=== PATIENT | female | born 1970 | race Caucasian/White ===

== ENCOUNTER 2019-01-11 13:06 | Emergency (ER) | payer SELFPAY ==
[2019-01-11] MEDS ORDERED: DIPH/PERTUSS(ACELL)/TETANUS VAC/PF 0.5 ML SYR (>=10YO) IM ONE (13:26)
[2019-01-11] MEDS ORDERED: NORMAL SALINE 1000 ML 1,000 ML IV ONE (13:26)
[2019-01-11 13:45] LABS: ABSOLUTE LYMPHOCYTES (AUTO) 2.7 10^3/uL (0.5-4.7); ABSOLUTE MONOCYTES (AUTO) 0.6 10^3/uL (0.1-1.4); ABSOLUTE NEUT (AUTO) 3.9 10^3/uL (1.7-8.2); BASOPHILS % (AUTO) 0.3 % (0-2); EOSINOPHILS % (AUTO) 0.3 % (0-6); HEMATOCRIT 39.7 % (36.0-47.0); HEMOGLOBIN 13.7 g/dL (12.0-15.5); LYMPHOCYTES % (AUTO) 37.3 % (13-45); MEAN CORPUSCULAR HGB CONC 34.4 g/dL (32.0-36.0); MEAN CORPUSCULAR VOLUME 99 fl (80-97); MONOCYTES % (AUTO) 7.9 % (3-13); PLATELET COUNT 234 10^3/uL (150-450); RED BLOOD COUNT 4.02 10^6/uL (3.72-5.28); RED CELL DISTRIBUTION WIDTH 12.6 % (11.5-14.0); SEGMENTED NEUTROPHILS % (AUTO) 54.2 % (42-78); TOTAL CELLS COUNTED % (AUTO) 100 %; WHITE BLOOD COUNT 7.2 10^3/uL (4.0-10.5)
[2019-01-11 13:57] LABS: ALANINE AMINOTRANSFERASE 23 U/L (9-52); ALBUMIN 5.2 g/dL (3.5-5.0); ALKALINE PHOSPHATASE 76 U/L (38-126); ANION GAP 19 (5-19); ASPARTATE AMINO TRANSFERASE 35 U/L (14-36); BILIRUBIN,DIRECT 0.3 mg/dL (0.0-0.4); BILIRUBIN,TOTAL 1.1 mg/dL (0.2-1.3); BLOOD UREA NITROGEN 11 mg/dL (7-20); CALCIUM 9.8 mg/dL (8.4-10.2); CARBON DIOXIDE 19 mmol/L (22-30); CHLORIDE 103 mmol/L (98-107); CREATINE KINASE 72 U/L (30-135); GLUCOSE 86 mg/dL (75-110); POTASSIUM 3.6 mmol/L (3.6-5.0); SODIUM 140.9 mmol/L (137-145); TOTAL PROTEIN 7.9 g/dL (6.3-8.2)
[2019-01-11 13:58] LABS: ALCOHOL < 10 mg/dL (NONE DETECTED)
[2019-01-11 14:07] LABS: CREATINE KINASE MB 0.43 ng/mL (<4.55)
[2019-01-11 14:09] LABS: TROPONIN I < 0.012 ng/mL
[2019-01-11 14:55] LABS: APPEARANCE,URINE CLEAR; BILIRUBIN,URINE NEGATIVE (NEGATIVE); COLOR,URINE YELLOW; GLUCOSE, URINE NEGATIVE (NEGATIVE); KETONES,URINE NEGATIVE (NEGATIVE); LEUKOCYTE ESTERASE,URINE NEGATIVE (NEGATIVE); NITRITE,URINE NEGATIVE (NEGATIVE); PROTEIN,URINE NEGATIVE (NEGATIVE); URINE SPECIFIC GRAVITY 1.011; UROBILINOGEN,URINE NEGATIVE mg/dL (<2.0)
--- NOTE | 2019-01-11 16:16 | RADIOLOGY REPORT (SQ) ---
EXAM DESCRIPTION: CT HEAD WITHOUT COMPLETED DATE/TIME: 01/11/2019 3:59 pm REASON FOR STUDY: Syncope, head injury COMPARISON: None. TECHNIQUE: Axial images acquired through the brain without intravenous contrast. Images reviewed wi th bone, brain and subdural windows. Additional sagittal and coronal reconstructions were generated. Images stored on PACS. All CT scanners at this facility use dose modulation, iterative reconstruction, and/or weight based d osing when appropriate to reduce radiation dose to as low as reasonably achievable (ALARA). [facility]: Dose Right [facility]: CareDose [facility]: Dose Right [facility]: Teradose 4D [facility]: Smart TRUECar RADIATION DOSE: CT Rad equipment meets quality standard of care and radiation dose reduction techniq ues were employed. CTDIvol: 48.6 mGy. DLP: 855 mGy-cm. mGy. LIMITATIONS: None. FINDINGS: VENTRICLES: Normal size and contour. CEREBRUM: No masses. No hemorrhage. No midline shift. No evidence for acute infarction. Normal gra y/white matter differentiation. No areas of low density in the white matter. CEREBELLUM: No masses. No hemorrhage. No alteration of density. No evidence for acute infarction. EXTRAAXIAL SPACES: No fluid collections. No masses. ORBITS AND GLOBE: No intra- or extraconal masses. Normal contour of globe without masses. CALVARIUM: No fracture. PARANASAL SINUSES: No fluid or mucosal thickening. SOFT TISSUES: No mass or hematoma. OTHER: No other significant finding. IMPRESSION: NORMAL BRAIN CT WITHOUT CONTRAST. EVIDENCE OF ACUTE STROKE: NO. COMMENT: Quality ID # [id number]: Final reports with documentation of one or more dose reduction techniques (e.g., Automated exposure control, adjustment of the mA and/or kV according to patient size, use of iterative reconstruction technique) TECHNICAL DOCUMENTATION: JOB ID: [id number] [employer]- All Rights Reserved Reading location - IP/workstation name: [email or web address]
[2019-01-11] MEDS ORDERED: ONDANSETRON HCL INJ/PF 4 MG/2 ML SDV IV ONE (16:17)
[2019-01-11] MEDS ORDERED: LIDOCAINE 1%/EPINEPHRINE INJ 20 ML VIAL INJ ONE (16:17)
[2019-01-11] MEDS ORDERED: MORPHINE SULFATE 10 MG/ML INJ IV ONE (16:17)
--- NOTE | 2019-01-11 16:21 | RADIOLOGY REPORT (SQ) ---
EXAM DESCRIPTION: CT CERVICAL SPINE WITHOUT COMPLETED DATE/TIME: 01/11/2019 3:59 pm REASON FOR STUDY: Syncope, head injury COMPARISON: None. TECHNIQUE: Axial images acquired through the cervical spine without intravenous contrast. Images re viewed with lung, soft tissue and bone windows. Reconstructed coronal and sagittal MPR images review ed. Images stored on PACS. All CT scanners at this facility use dose modulation, iterative reconstruction, and/or weight based d osing when appropriate to reduce radiation dose to as low as reasonably achievable (ALARA). [facility]: Dose Right [facility]: CareDose [facility]: Dose Right [facility]: Teradose 4D [facility]: Smart [employer] RADIATION DOSE: CT Rad equipment meets quality standard of care and radiation dose reduction techniq ues were employed. CTDIvol: 12.8 mGy. DLP: 266 mGy-cm. mGy. LIMITATIONS: None. FINDINGS: ALIGNMENT: Straightening of the lordotic curve. MINERALIZATION: Normal. VERTEBRAL BODIES: No fractures or dislocation. DISCS: Multilevel disc space narrowing with osteophytes. FACETS, LATERAL MASSES, POSTERIOR ELEMENTS: Facet arthropathy. No fractures. No dislocation. No ac port gamble findings. HARDWARE: None in the spine. VISUALIZED RIBS: No fractures. LUNG APICES AND SOFT TISSUES: No significant or acute findings. OTHER: No other significant finding. IMPRESSION: CHRONIC DEGENERATIVE CHANGES. NO ACUTE FINDINGS. TECHNICAL DOCUMENTATION: JOB ID: [id number] Quality ID # [id number]: Final reports with documentation of one or more dose reduction techniques (e.g., Au tomated exposure control, adjustment of the mA and/or kV according to patient size, use of iterative reconstruction technique) 2010 [employer]- All Rights Reserved Reading location - IP/workstation name: [email or web address]
[2019-01-11] MEDS ORDERED: HYDROCODONE/ACETAMINOPHEN 5-325 MG (6 TAB/ER DISP) PO PRN (17:01)
--- NOTE | 2019-01-11 17:07 | ER Document Report ---
Entered by MICKIE FAM SCRIBE 01/11/19 0274 Acting as scribe for:JORDYN DUVAL MD ED General - General Stated Complaint: POSSIBLE SYNCOPE Time Seen by Provider: 01/11/19 13:15 Mode of Arrival: Medic Information source: Patient Notes: Patient is a 48 year old female presenting to the emergency department via EMS complaining of headache secondary and syncopal episode. Patient states she was in her yard using a weed eater for approximately 20 minutes when she proceeded to pass out. She states the next thing she remembered was waking up on the ground with multiple people surrounding her. She reports having similar symptoms a year ago. She states at that time, she kneeled over at a yard sale and proceeded to fall over. She states she was told she had a "small grand mal seizure". She denies any neck pain. EMS reports a laceration on the patient's head. 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 She states she consumed approximately 6-7 beers last night. - Related Data Allergies/Adverse Reactions: No Known Allergies Allergy (Verified 01/11/19 16:25) Past Medical History - General Information source: Patient - Social History Smoking Status: Current Every Day Smoker Cigarette use (# per day): Yes - 1/2 PPD Smoking Education Provided: No Frequency of alcohol use: Heavy Family History: Reviewed & Not Pertinent Review of Systems - Review of Systems Constitutional: No symptoms reported EENT: No symptoms reported Cardiovascular: See HPI, Syncope Respiratory: No symptoms reported Gastrointestinal: No symptoms reported Genitourinary: No symptoms reported Female Genitourinary: No symptoms reported Musculoskeletal: No symptoms reported Skin: No symptoms reported Hematologic/Lymphatic: No symptoms reported Neurological/Psychological: See HPI, Headaches -: Yes All other systems reviewed and negative Physical Exam - Notes Notes: GENERAL: Alert, interacts well. No acute distress. HEAD: Head is initially wrapped in bandages done by EMS. EYES: Pupils equal, round, and reactive to light. Extraocular movements intact. ENT: Oral mucosa moist, tongue midline. NECK: Initially placed in a C-collar. LUNGS: Clear to auscultation bilaterally, no wheezes, rales, or rhonchi. No respiratory distress. HEART: Regular rate and rhythm. No murmurs, gallops, or rubs. ABDOMEN: Soft, non-tender. Non-distended. Bowel sounds present in all 4 quadrants. No guarding, rigidity, or rebound. EXTREMITIES: Moves all 4 extremities spontaneously. NEUROLOGICAL: Alert and oriented x3. Normal speech. PSYCH: Normal affect, normal mood. SKIN: Warm, dry, normal turgor. No rashes or lesions noted. Course - Re-evaluation Re-evalutation: 01/11/19 16:54 Patient has been on a monitor showing a normal sinus rhythm the entire time she is here. Her only complaint has been the headache to the top of the head where the injury is and a throbbing sensation in her temporal regions. She denies neck pain, she denies chest pain, she denies shortness of breath, she denies thoracic, back, or abdominal injury. - Laboratory Result Diagrams: 01/11/19 13:00 01/11/19 13:00 Laboratory results interpreted by me: 01/11/19 01/11/19 13:00 13:00 MCV 99 H [facility] 34.0 H Carbon Dioxide 19 L Albumin 5.2 H - Diagnostic Test Radiology reviewed: Image reviewed, Reports reviewed - CT scan of cervical spine shows chronic degenerative changes without acute injury. CT scan of the head shows no intracranial abnormalities. Procedures - Laceration/Wound Repair Upper Head Time completed: 16:50 Wound length (cm): 6 Wound's Depth, Shape: Linear, Contused tissue Laceration pre-procedure: Sterile drapes applied, Shur-Clens applied Anesthetic type: 1% Lidocaine w/epi Volume Anesthetic (mLs): 12 Wound explored: Clean, No foreign body removed Wound Debrided: Minimal Wound Repaired With: Adalberto - 7 adalberto Discharge - Discharge Clinical Impression: Episode of syncope Qualifiers: Syncope type: unspecified Qualified Code(s): R55 - Syncope and collapse Scalp laceration Qualifiers: Encounter type: initial encounter Qualified Code(s): S01.01XA - Laceration wit hout foreign body of scalp, initial encounter Condition: Stable Disposition: HOME, SELF-CARE Additional Instructions: Scalp Laceration: A scalp laceration requires little care. Dressings are applied only if severe bleeding or a large flap are present. Usually, once the cut is stapled, you can ignore it. Simply comb the hair over top of it to hide the adalberto and go about your usual routine. You can shampoo your hair as needed starting tomorrow. If you need to wear a special hat or protective helmet for work, be careful that it doesn't press on the area. If crusting is bothersome, you can soften the crusts with Polysporin ointment, then shampoo. Infection in a scalp laceration is rare. If any signs of infection occur (swelling, redness, increasing tenderness, red streaks, tender lumps in the neck on the side of the laceration, or fever), see the doctor immediately. Syncopal Episode: Syncope (fainting or near-fainting) can occur from many different health problems. Or it can be a simple fainting spell requiring no treatment. It is safe for you to go home, but further evaluation will likely be necessary. Your work-up may include tests for internal bleeding, heart disease, medication problems, or near-strokes. Tests are not always required, however, depending on the nature of your problem. The warning signs of an impending faint include: dizziness, lightheadednes s, nausea, hot flashes, tingling, and weakness. If this happens, lay down and put your feet up, then wait until all of these symptoms have passed before standing up again. If these episodes become recurrent, or if you develop chest pain, heart palpitations, mental confusion, blurred vision, or headache, then you should call the physician, or go to the emergency room. Use ice packs to the injured area of your scalp to reduce swelling and to help with pain control. Rest in a seated position, sleeping in an easy chair tonight would be a good idea to keep your head elevated above your heart. Take the [place] that is dispensed for headache--1 tablet every 4-6 hours as needed. Return in 7-10 days to have the adalberto removed. Return sooner if any signs of infection or any other problems. RETURN TO THE EMERGENCY ROOM IF ANY NEW OR WORSENING SYMPTOMS. I personally performed the services described in the documentation, reviewed and edited the documentation which was dictated to the scribe in my presence, and it accurately records my words and actions.
[2019-01-11 17:38] VITALS: BP 151/100
== END 2019-01-11 17:51 | disposition home or self-care (01) ==
LOC: ER 13:06
DX: S01.01XA Laceration without foreign body of scalp, initial encounter (principal); R55 Syncope and collapse; F17.210 Nicotine dependence, cigarettes, uncomplicated; W18.39XA Other fall on same level, initial encounter; Y93.H2 Activity, gardening and landscaping; Y92.007 Garden or yard of unspecified non-institutional (private) residence as the place of occurrence of the external cause; Z23 Encounter for immunization
CPT/HCPCS: 99284; 96361; 90471; 96374; 96375; 36415; 82553; 80307; 82550; 85025; 80053; 81001; 84484; 70450; 72125; 90715; 12002; J3490; J2270; J2405; J7030

== ENCOUNTER 2019-01-23 10:34 | Emergency (ER) | payer SELFPAY ==
[2019-01-23 10:43] VITALS: BP 147/98
--- NOTE | 2019-01-23 10:48 | ER Document Report ---
HPI - HPI Time Seen by Provider: 01/23/19 10:47 Pain Level: 4 Notes: 48 yr old female presents for 7 adalberto to be removed after sustaining a head trauma s/p syncopal events on 01/11/19. Denies any fevers chills, denies any headaches, blurred vision double vision loss of vision. States wound has been healing well. No new complaints. Denies any chest pain shortness of breath. - REPRODUCTIVE Reproductive: DENIES: : Past Medical History - General Information source: Patient - Social History Smoking Status: Unknown if Ever Smoked Family History: Reviewed & Not Pertinent Renal/ Medical History: Denies: Hx Peritoneal Dialysis Vertical Provider Document - CONSTITUTIONAL Agree With Documented VS: Yes Notes: PHYSICAL EXAMINATION: GENERAL: Well-appearing, well-nourished and in no acute distress. HEAD: Atraumatic, normocephalic. 7 adalberto in head EYES: Pupils equal round and reactive to light, extraocular movements intact, conjunctiva are normal. ENT: Nares patent, oropharynx clear without exudates. Moist mucous membranes. NECK: Normal range of motion, supple without lymphadenopathy LUNGS: Breath sounds clear to auscultation bilaterally and equal. No wheezes rales or rhonchi. HEART: Regular rate and rhythm without murmurs Female : deferred Musculoskeletal: Normal range of motion, no pitting or edema. No cyanosis. NEUROLOGICAL: Cranial nerves grossly intact. Normal speech, normal gait. Normal sensory, motor exams PSYCH: Normal mood, normal affect. SKIN: Warm, Dry, normal turgor, no rashes or lesions noted. 22-like and then on the other half of a flight - INFECTION CONTROL TRAVEL OUTSIDE OF THE [place] IN LAST 30 DAYS: No Course - Re-evaluation Re-evalutation: 01/23/19 10:52 Afebrile, vitals stable and in no distress . verbal consent given to to remove adalberto. 7 adalberto removed without incident with staple remover. pt tolerated procedure without distress. You needed to be ableI have reevaluated this patient multiple times and no significant life threatening changes, no signs of toxicity, sepsis or peritonitis are noted. The patient and I have discussed the diagnosis and risks, and we agree with discharging home and close follow-up. We also discussed returning to the Emergency Department immediately if new or worsening symptoms occur with the understanding that symptoms and presentations can change. At this time will discharge with return precautions and follow-up recommendations. Verbal discharge instructions given a the bedside and opportunity for questions given. We have discussed the symptoms which are most concerning (e.g., headache , fevers, Good capillary that necessitate immediate return. Medication warnings reviewed. All questions and concerns answered by this provider. Patient is in agreement with this plan and has verbalized understanding of return precautions and the need for primary care follow-up in the next 24-72 hours. Patient verbalized understanding of plan of care and agree with plan of care. - Vital Signs Vital signs: Temp Pulse Resp BP Pulse Ox 97.5 F 72 16 147/98 H 99 01/23/19 10:41 01/23/19 10:41 01/23/19 10:41 01/23/19 10:41 01/23/19 10:41 Discharge - Discharge Clinical Impression: Removal of staple Condition: Stable Disposition: HOME, SELF-CARE Instructions: Staple Removal ([facility]) Additional Instructions: Which is probably monitor site, apply [id number] triple antibiotic ointment as needed to area twice a day. If any redness, swelling, drainage occur, return to ER. follow up with pcp as needed Drain until Return immediately for any new or worsening symptoms. Follow up with primary care provider, call tomorrow to make followup appointment. Forms: Return to Work Referrals: BHAVYA HOOPER MD [ACTIVE STAFF] - Follow up as needed
== END 2019-01-23 11:01 | disposition home or self-care (01) ==
LOC: ER 10:34
DX: S09.90XD Unspecified injury of head, subsequent encounter (principal); X58.XXXD Exposure to other specified factors, subsequent encounter

== ENCOUNTER 2019-11-08 08:28 | Emergency (ER) | payer OTHER ==
[2019-11-08] MEDS ORDERED: IBUPROFEN 800 MG TABLET PO ONE (10:10)
--- NOTE | 2019-11-08 10:12 | ER Document Report ---
HPI - HPI Patient complains to provider of: right foot pain Time Seen by Provider: 11/08/19 10:08 Onset: Other Onset/Duration: Persistent Quality of pain: Achy Severity: Moderate Pain Level: 3 Context: This 48-year-old female presents emergency department with complaints of right foot pain. Reports she fell down some steps couple days ago and reports pain since that time. 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 Associated Symptoms: None Exacerbated by: Walking Relieved by: Denies Similar symptoms previously: No Recently seen / treated by doctor: No - REPRODUCTIVE LMP: Depo Shot Reproductive: DENIES: : Past Medical History - General Information source: Patient - Social History Smoking Status: Never Smoker Chew tobacco use (# tins/day): No Frequency of alcohol use: Occasional Drug Abuse: Marijuana Occupation: [employer] Family History: Reviewed & Not Pertinent Patient has suicidal ideation: No Patient has homicidal ideation: No - Medical History Medical History: Negative Renal/ Medical History: Denies: Hx Peritoneal Dialysis Past Surgical History: Reports: Hx Gynecologic Surgery Vertical Provider Document - CONSTITUTIONAL Agree With Documented VS: Yes Exam Limitations: No Limitations General Appearance: WD/WN, No Apparent Distress - INFECTION CONTROL TRAVEL OUTSIDE OF THE [place] IN LAST 30 DAYS: No - HEENT HEENT: Atraumatic, Normocephalic - NECK Neck: Normal Inspection, Supple - RESPIRATORY Respiratory: Breath Sounds Normal, No Respiratory Distress - CARDIOVASCULAR Cardiovascular: Regular Rate, Regular Rhythm - MUSCULOSKELETAL/EXTREMETIES Musculoskeletal/Extremeties: MAEW, FROM, Tender - right 4 &5 toe ttp, no obvious deformity cap refill less than 2 seconds good pedal pulse - NEURO Level of Consciousness: Awake, Alert, Appropriate Motor/Sensory: No Motor Deficit - DERM Integumentary: Warm, Dry Course - Re-evaluation Re-evalutation: 11/08/19 10:59 Foot X-Ray 11/08/19 10:10 IMPRESSION: Osteopenia. Nondisplaced transverse fracture of the base of the right 5th proximal phalanx. Fracture noted to the base of the proximal phalanx. Postop shoe ordered patient instructed on importance of follow-up with orthopedics rest ice Motrin for the pain. - Vital Signs Vital signs: Temp Pulse Resp BP Pulse Ox 97.8 F 85 18 141/97 H 97 11/08/19 08:57 11/08/19 08:57 12/26/19 08:57 11/08/19 08:57 11/08/19 08:57 - Diagnostic Test Radiology reviewed: Image reviewed, Reports reviewed Procedures - Immobilization Right Foot Immobilizer type: Post-op shoe Performed by: PCT Post-Proc Neuro Vasc Exam: Unchanged from pre-exam Discharge - Discharge Clinical Impression: Right foot pain Fracture of fifth toe, right, closed Qualifiers: Encounter type: initial encounter Qualified Code(s): S92.501A - Displaced unspecified fracture of right lesser toe(s), initial encounter for closed fracture Condition: Stable Disposition: HOME, SELF-CARE Instructions: Fracture ([facility]), Ibuprofen (General) ([facility]), Ice & Elevation ([facility]), Post-Op Shoe ([facility]), Fractured Toe ([facility]) Additional Instructions: *You have been evaluated for fractured base of 5th toe *Maintain the post op shoe *Rest/Ice/Elevate *Follow up with orthopedics within one week *Take medication as prescribed *Return to ED for worsening condition, changes, needs Monitor your blood pressure. Your blood pressure was elevated today. This may be because you were anxious, in pain or because you need medication. It is important to follow up with your primary care provider for full evaluation. Prescriptions: Ibuprofen [Motrin 800 mg Tablet] 800 mg PO TID #15 tablet Forms: Elevated Blood Pressure, Return to Work
--- NOTE | 2019-11-08 10:56 | RADIOLOGY REPORT (SQ) ---
EXAM DESCRIPTION: FOOT RIGHT COMPLETE COMPLETED DATE/TIME: 11/08/2019 10:40 am REASON FOR STUDY: fell pain COMPARISON: None. NUMBER OF VIEWS: Three views. TECHNIQUE: AP, lateral and oblique radiographic images acquired of the right foot. LIMITATIONS: None. FINDINGS: MINERALIZATION: Osteopenia. BONES: Nondisplaced transverse fracture of the base of the right 5th proximal phalanx. JOINTS: No effusions. SOFT TISSUES: No soft tissue swelling. No foreign body. OTHER: No other significant finding. IMPRESSION: Osteopenia. Nondisplaced transverse fracture of the base of the right 5th proximal phala nx. TECHNICAL DOCUMENTATION: JOB ID: [id number] [employer]- All Rights Reserved Reading location - IP/workstation name: [email or web address]
[2019-11-08 11:18] VITALS: BP 154/95
== END 2019-11-08 11:17 | disposition home or self-care (01) ==
LOC: ER 08:28
DX: S92.501A Displaced unspecified fracture of right lesser toe(s), initial encounter for closed fracture (principal); M79.671 Pain in right foot; W10.9XXA Fall (on) (from) unspecified stairs and steps, initial encounter
CPT/HCPCS: 99283

== ENCOUNTER 2020-08-30 10:30 | Emergency (ER) | payer OTHER ==
--- NOTE | 2020-08-30 11:04 | ER Document Report ---
ED Medical Screen (RME) - General Chief Complaint: Arm Pain Stated Complaint: LEFT ELBOW PAIN Time Seen by Provider: 08/30/20 10:56 Mode of Arrival: Ambulatory Information source: Patient Notes: 49-year-old female presented to ED for a knot to her left elbow for about the last 4 days. She states she has not injured it she does not want know what it is from. She states it started out red and painful then became yellow and painful now it is just painful. She states it started on Tuesday. She states she does smoke half pack a day drinks about 18 pack or more a day and does use some marijuana. Has medical history of seizures. States she did have a finger injury that did not heal properly so they had to do surgery and she also had a ovary removed. Patient is alert and oriented at this time. I have greeted and performed a rapid initial assessment of this patient. A comprehensive ED assessment and evaluation of the patient, analysis of test results and completion of medical decision making process will be conducted by an additional ED providers. TRAVEL OUTSIDE OF THE [place] IN LAST 30 DAYS: No - Related Data Allergies/Adverse Reactions: No Known Allergies Allergy (Verified 11/08/19 10:02) Past Medical History Renal/ Medical History: Denies: Hx Peritoneal Dialysis Past Surgical History: Reports: Hx Gynecologic Surgery Physical Exam - Vital signs Vitals: Temp Pulse Resp BP Pulse Ox 98.1 F 79 18 156/90 H 100 08/30/20 10:40 08/30/20 10:40 08/30/20 10:40 08/30/20 10:40 08/30/20 10:40 Course - Vital Signs Vital signs: Temp Pulse Resp BP Pulse Ox 98.1 F 79 18 156/90 H 100 08/30/20 10:40 08/30/20 10:40 08/30/20 10:40 08/30/20 10:40 08/30/20 10:40
[2020-08-30 11:31] LABS: ABSOLUTE MONOCYTES (AUTO) 0.4 10^3/uL (0.1-1.4); EOSINOPHILS % (AUTO) 0.3 % (0-6); TOTAL CELLS COUNTED % (AUTO) 100 %
[2020-08-30 11:38] LABS: ABSOLUTE LYMPHOCYTES (AUTO) 1.3 10^3/uL (0.5-4.7); ABSOLUTE NEUT (AUTO) 2.6 10^3/uL (1.7-8.2); BASOPHILS % (AUTO) 0.4 % (0-2); HEMATOCRIT 37.5 % (36.0-47.0); MEAN CORPUSCULAR HGB CONC 34.7 g/dL (32.0-36.0); MEAN CORPUSCULAR VOLUME 104 fl (80-97); MONOCYTES % (AUTO) 9.8 % (3-13); PLATELET COUNT 191 10^3/uL (150-450); RED BLOOD COUNT 3.62 10^6/uL (3.72-5.28); RED CELL DISTRIBUTION WIDTH 12.3 % (11.5-14.0); SEGMENTED NEUTROPHILS % (AUTO) 60.5 % (42-78); WHITE BLOOD COUNT 4.3 10^3/uL (4.0-10.5)
[2020-08-30] MEDS ORDERED: DEXAMETHASONE SOD PHOS INJ 10 MG/1 ML VIAL IV ONE (11:38)
[2020-08-30] MEDS ORDERED: KETOROLAC TROMETHAMINE INJ/PF 30 MG/1 ML SDV IV ONE (11:38)
--- NOTE | 2020-08-30 11:41 | ER Document Report ---
ED Extremity Problem, Upper - General Chief Complaint: Elbow pain Stated Complaint: LEFT ELBOW PAIN Time Seen by Provider: 08/30/20 10:56 Mode of Arrival: Ambulatory Notes: This 49-year-old woman presents to the emergency department with a 4-day history of left elbow pain. 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 States that she awoke 4 days ago with swelling and tenderness in the medial aspect of the left arm. She denies a known injury, however was doing some heavy lifting the day prior to the onset. She denies a history of similar episodes in the past. She is a heavy drinker and smoker. She also describes sweaty episodes and hot flashes which she relates to having 1 ovary and now age 49. She had been taking a Depo Provera shot prior to the pandemic, however, she has not been going back to the health department for treatment. TRAVEL OUTSIDE OF THE [place] IN LAST 30 DAYS: No - Related Data Allergies/Adverse Reactions: No Known Allergies Allergy (Verified 11/08/19 10:02) Past Medical History - General Information source: Patient - Social History Smoking Status: Current Every Day Smoker Chew tobacco use (# tins/day): No Frequency of alcohol use: 18 pack a day Drug Abuse: Marijuana Family History: Reviewed & Not Pertinent Renal/ Medical History: Denies: Hx Peritoneal Dialysis Past Surgical History: Reports: Hx Gynecologic Surgery Review of Systems - Review of Systems Notes: Constitutional: Negative for fever. HENT: Negative for sore throat. Eyes: Negative for visual changes. Cardiovascular: Negative for chest pain. Respiratory: Negative for shortness of breath. Gastrointestinal: Negative for abdominal pain, vomiting or diarrhea. Genitourinary: Negative for dysuria. Musculoskeletal: + Left elbow tenderness Skin: Negative for rash. Neurological: Negative for headaches, weakness or numbness. 10 point ROS negative except as marked above and in HPI. Physical Exam - Vital signs Vitals: Temp Pulse Resp BP Pulse Ox 98.1 F 79 18 156/90 H 100 08/30/20 10:40 08/30/20 10:40 08/30/20 10:40 08/30/20 10:40 08/30/20 10:40 - Notes Notes: PHYSICAL EXAMINATION: Physical Exam: General: Well-nourished well-developed in no acute distress HEENT: NC/AT, pupils equal round and reactive to light, MM moist,nares clear, oropharynx clear, airway patent Neck: supple, no adenopathy, no masses. Good range of motion Lungs: clear, no wheezing, no rales no rhonchi CVS: Regular rate and rhythm no murmur gallop or rub Abdomen: Soft, active, nontender, no masses, no hepatosplenomegaly Ext: + Tenderness in the medial aspect of the left elbow, decreased extension left arm neurovascular intact Neuro: Alert and responsive, moving all 4 extremities on command, cranial nerves intact, no focal findings Skin: Intact no open lesions, no rash PSYCH: Normal mood, normal affect. Course - Re-evaluation Re-evalutation: 08/30/20 13:01 X-ray was noted to be negative and patient was given Decadron and Toradol IV with some improvement of pain and improve range of motion. I have explained to the patient that there is no bony injury and that this is likely a secondary inflammation in the elbow secondary to tendon related injury. She is placed in a sling and given prescription for Naprosyn and prednisone. Of asked the patient to follow-up with her primary care doctor as needed. She states that she does not have a primary care doctor and will need a referral. During her ambulation for the [facility]. - Vital Signs Vital signs: Temp Pulse Resp BP Pulse Ox 98.1 F 79 18 156/90 H 100 08/30/20 10:40 08/30/20 10:40 08/30/20 10:40 08/30/20 10:40 08/30/20 10:40 - Laboratory Result Diagrams: 08/30/20 11:10 08/30/20 11:10 Laboratory results interpreted by me: 08/30/20 08/30/20 11:10 11:10 RBC 3.62 L MCV 104 H MCH 36.0 H Creatinine 0.47 L AST 37 H Discharge - Discharge Clinical Impression: Left elbow pain, Tendinitis of left elbow Condition: Good Disposition: HOME, SELF-CARE Instructions: Tendonitis ([facility]) Additional Instructions: You are seen in the emergency department with left elbow pain. You are giving medications to take for pain and inflammation. Please take medication as prescribed. You may wear the sling for comfort follow-up with primary care doctor as needed. HOME CARE INSTRUCTIONS & INFORMATION: Thank you for choosing us for your m edical needs. We hope you're satisfied with the care you received. After you leave, you must properly care for your problem and, at the same time, observe its progress. Any condition can change. Some illnesses can change rapidly over hours or days. If your condition worsens, return to the Emergency Department or see your physician promptly. ABOUT YOUR X-RAYS AND EKG'S: If you had an EKG or X-rays taken, they have been read by the Emergency Physician. The X-rays and EKG's will also be read by a Radiologist or Esthetician Makeup Artist within 24 hours. If discrepancies are noted, you will be notified by telephone. Please be certain the ED has a correct telephone number & address where you can be reached. Also, realize that some fractures or abnormalities do not show up on initial X-rays. If your symptoms continue, see your physician. ABOUT YOUR LABORATORY TEST: If you had laboratory tests, the results have been reviewed by the Emergency Physician. Some test results (for example cultures) may not be available for several days. You will be contacted if any test result shows you need additional treatment. Please be certain the ED has a correct telephone number and address where you can be reached. ABOUT YOUR MEDICATIONS: You will receive instructions on how to take your medicine on the prescription label you receive. Additional information may be provided by the Pharmacy. If you have questions afterwards, call the ED for clarification or further instructions. Some prescribed medications may cause drowsiness. Do not perform tasks such as driving a car or operating machinery without consulting your Pharmacist. If you feel you need a refill of pain medication, your condition will need re-evaluation. Please do not call for a refill of any medication. ABOUT YOUR SIGNATURE: Signature of this document acknowledges to followin. Understanding that you received emergency treatment and that you may be released before al medical problems are known or treated. Please be certain the ED has a correct phone number & address where you can be reached. 2. Acknowledgement that you will arrange for follow-up care as recommended. 3. Authorization for the Emergency Physician to provide information to your follow-up Physician in order to maximize your care. AT ANY TIME, IF YOUR SYMPTOMS CHANGE SIGNIFICANTLY OR WORSEN OR YOU DEVELOP NEW SYMPTOMS, RETURN TO THE EMERGENCY DEPARTMENT IMMEDIATELY FOR RE-EVALUATION. OUR GOAL IS TO PROVIDE EXCELLENT MEDICAL CARE! WE HOPE THAT WE HAVE MET YOUR EXPECTATIONS DURING YOUR EMERGENCY DEPARTMENT VISIT AND THAT YOU FEEL YOU HAVE RECEIVED EXCELLENT CARE! Prescriptions: Prednisone [Deltasone 20 mg Tablet] 1 tab PO BID 5 Days #10 tablet Naproxen [Naprosyn] 500 mg PO BID #20 tablet Forms: Return to Work Referrals: [facility] [Provider Group] - Follow up as needed
[2020-08-30 11:42] LABS: ALBUMIN 4.6 g/dL (3.5-5.0); ALKALINE PHOSPHATASE 55 U/L (38-126); ANION GAP 8 (5-19); ASPARTATE AMINO TRANSFERASE 37 U/L (14-36); BILIRUBIN,DIRECT 0.2 mg/dL (0.0-0.4); BLOOD UREA NITROGEN 9 mg/dL (7-20); CALCIUM 9.3 mg/dL (8.4-10.2); CARBON DIOXIDE 25 mmol/L (22-30); CHLORIDE 107 mmol/L (98-107); GLUCOSE 99 mg/dL (75-110); POTASSIUM 3.8 mmol/L (3.6-5.0)
--- NOTE | 2020-08-30 12:30 | RADIOLOGY REPORT (SQ) ---
EXAM DESCRIPTION: ELBOW LEFT OVER 2 VIEWS IMAGES COMPLETED DATE/TIME: 08/30/2020 11:26 am REASON FOR STUDY: Not painful left elbow COMPARISON: None. NUMBER OF VIEWS: Four views. TECHNIQUE: AP, lateral, and both oblique radiographic images acquired of the left elbow. LIMITATIONS: None. FINDINGS: MINERALIZATION: Normal. BONES: No acute fracture or dislocation. No worrisome bone lesions. JOINT: No effusion. SOFT TISSUES: No soft tissue swelling. No foreign body. OTHER: No other significant finding. IMPRESSION: NEGATIVE STUDY OF THE LEFT ELBOW. NO RADIOGRAPHIC EVIDENCE OF ACUTE INJURY. TECHNICAL DOCUMENTATION: JOB ID: [id number] 2010 [employer]- All Rights Reserved Reading location - IP/workstation name: [email or web address]
[2020-08-30 14:00] VITALS: BP 169/113
== END 2020-08-30 14:01 | disposition home or self-care (01) ==
LOC: ER 10:30
DX: M25.522 Pain in left elbow (principal); M77.8 Other enthesopathies, not elsewhere classified
CPT/HCPCS: 99284; 96374; 96375; 36415; 85025; 80053; 73080; J1885; J1100

== ENCOUNTER → 2020-11-11 | Outpatient (CLI) | payer OTHER ==
[2020-11-11 11:56] VITALS: BP 181/112
--- NOTE | 2020-11-11 11:56 | ER RDC ASSESSMENT REPORT ---
Intake - In the Last 14 days Have you traveled outside [place]?: No Have you been in close contact with someone CONFIRMED: Yes Worked in Healthcare?: No - Symptoms Subjective Fever([place] feverish): No Chills: No Muscule Aches: No Runny Nose: No Sore Throat: No Cough (New or worsening chronic cough): No Shortness of breath: No Nausea or Vomiting: No Headache: No Abdominal Pain: No Diarrhea(3 or more loose stools in last 24 hours): No - Do you have any of the following Chronic lung disease: Asthma or emphysema or COPD: No Cystic Fibrosis: No Diabetes: No High Blood Pressure: Yes Cardiovascular Disease: No Chronic Kidney Disease: No Chronic Liver Disease: No Chronic blood disorder like Sickle Cell Disease: No Weak immune system due to disease or medication: No Neurologic condition that limits movement: No Developmental delay - Moderate to Severe: No Recent (within past 2 weeks) or current : No Morbid Obesity (>100 pounds over ideal weight): No - Objective Temperature: 98.5 F Pulse Rate: 81 Respiratory Rate: 18 Blood Pressure: 181/112 - did not take BP meds today O2 Sat by Pulse Oximetry: 97 Objective: Given above, testing performed: covid Disposition: Home; Selfcare General - General Stated Complaint: asymptomatic, covid screen Time Seen by Provider: 11/11/20 11:30 Mode of Arrival: Ambulatory - [facility] Notes: Patient presents to clinic for COVID-19 testing after coming in close contact with another COVID 19 positive individual. Patient is asymptomatic. They deny any cough, shortness of breath, fever, chills, muscle aches, rhinorrhea, sore throat, nausea or vomiting, headache, abdominal pain or diarrhea. Patient has no acute medical concerns. - Related Data Allergies/Adverse Reactions: No Known Allergies Allergy (Verified 11/08/19 10:02) Past Medical History - Social History Family History: Reviewed & Not Pertinent Renal/ Medical History: Denies: Hx Peritoneal Dialysis Past Surgical History: Reports: Hx Gynecologic Surgery Physical Exam - Vital signs Interpretation: Hypertensive - General General appearance: Appears well, Alert In distress: None Notes: PHYSICAL EXAMINATION: GENERAL: Well-appearing and in no acute distress. HEAD: Atraumatic, normocephalic. EYES: sclera anicteric, conjunctiva are normal. ENT: nares patent. Moist mucous membranes. NECK: Normal range of motion, supple without lymphadenopathy. LUNGS: No increased work of breathing. Lung sounds CTAB and equal. No wheezes rales or rhonchi. HEART: Regular rate and rhythm without murmurs. ABDOMEN: Soft, nontender, normal bowel sounds, no guarding. EXTREMITIES: Normal range of motion, no pitting edema. No cyanosis. NEUROLOGICAL: A&O x 3. Normal speech. PSYCH: Normal mood, normal affect. SKIN: Warm, Dry, normal turgor, no rashes or lesions noted Patient Education/Counseling Counseling/Education: Patient presents for COVID 19 testing after close exposure to another person who has tested positive for COVID 19. Patient is asymptomatic at this time. Patient does not have emergency worrying symptoms such as difficulty breathing, shortness of breath, chest pain, pressure, confusion or cyanosis. Patient appears suitable for discharge as vital signs are stable and patient is nontoxic in appearance. Good return precautions have been discussed with patient, patient verbalized understanding and is agreeable with discharge plan of care at this time. Guidance for worsening S/SX: As a person under investigation for Covid 19, the [place] department of Health and Human Services, division of public health advises you to adhere to the following guidance until your test results are reported to you. If your test result is positive, you will receive additional information from your provider and your local health department at that time. Remain at home until you are cleared by the health provider or public health authorities. Keep a log of visitors to your home, notify any visitors to your home of your isolation status. If you plan to move to a new address or leave the [facility], notify the local health department in your [facility]. Call your doctor or seek care if you have an urgent medical need. Before seeking medical care, call ahead to get instructions from the provider before arriving at the medical office clinic or hospital. Notify them that you are being tested for the virus that causes Covid 19 so that arrangements can be made, as necessary, to prevent transmission to others in the healthcare setting. Next, notify the local health department in your [facility]. If a medical emergency arises and you need to call 911, inform the first responders that you are being tested for the virus that causes Covid 19. Next, notify the local health department in your county. RDC Discharge - Discharge Clinical Impression: Encounter for screening laboratory testing for COVID-19 virus in asymptomatic patient Condition: Good Disposition: Home; Selfcare
== END ==
LOC: RDC 11:04
PROVIDERS: ATTEND Registered Nurse
DX: Z20.828 Contact with and (suspected) exposure to other viral communicable diseases (principal)
CPT/HCPCS: 87635; 99201 ×2; C9803

== ENCOUNTER 2020-11-14 13:27 | Emergency (ER) | payer OTHER ==
[2020-11-14 13:33] VITALS: BP 168/133
[2020-11-14] MEDS ORDERED: IBUPROFEN 800 MG TABLET PO ONE (14:41)
--- NOTE | 2020-11-14 14:43 | ER Document Report ---
HPI - HPI Patient complains to provider of: Right hand injury, left toe injury Time Seen by Provider: 11/14/20 14:38 Onset/Duration: Persistent Quality of pain: Achy Context: Patient states that she stubbed her left second toe last week hitting it against a floor heater. Patient states that last night she was drinking and fell injuring her right hand. Patient with tenderness over the right fifth metacarpal. Patient is right-hand dominant. Patient denies any other injuries. Associated Symptoms: denies: Nausea, Vomiting Exacerbated by: Movement, Walking Relieved by: Denies Similar symptoms previously: No Recently seen / treated by doctor: No - ROS ROS below otherwise negative: Yes Systems Reviewed and Negative: Yes All other systems reviewed and negative - NEURO Neurology: DENIES: Weakness - GASTROINTESTINAL Gastrointestinal: DENIES: Nausea - REPRODUCTIVE Reproductive: DENIES: : - MUSCULOSKELETAL Musculoskeletal: REPORTS: Extremity pain - Right hand fifth finger, left, Swelling - DERM Skin Color: Normal Skin Problems: None Past Medical History - General Information source: Patient - Social History Smoking Status: Current Every Day Smoker Frequency of alcohol use: Occasional Drug Abuse: Marijuana 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 IN LAST 30 DAYS: No - HEENT HEENT: Atraumatic, Normocephalic - NECK Neck: Normal Inspection - RESPIRATORY Respiratory: No Respiratory Distress - CARDIOVASCULAR Pulses: Normal: Radial, Dorsalis pedis - MUSCULOSKELETAL/EXTREMETIES Musculoskeletal/Extremeties: MAEW, Tender - Left second toe tenderness with edema, right fifth metacarpal tenderness with deformity, Edema. negative: Eccymosis - NEURO Level of Consciousness: Awake, Alert, Appropriate Motor/Sensory: No Motor Deficit - DERM Integumentary: Warm, Dry, No Rash Course - Vital Signs Vital signs: Temp Pulse Resp BP Pulse Ox 98.2 F 107 H 21 H 168/133 H 98 11/14/20 13:31 11/14/20 13:31 11/14/20 13:31 11/14/20 13:11/14/20 13:31 - Laboratory Results Critical Laboratory Results Reviewed: No Critical Results - Radiology Results Critical Radiology Results Reviewed: No Critical Results Procedures - Immobilization Right Finger 5th digit Pre-Proc Neuro Vasc Exam: Normal Immobilizer type: Ulnar Performed by: PCT Post-Proc Neuro Vasc Exam: Normal Alignment checked and good: Yes Left Toe 2nd digit Pre-Proc Neuro Vasc Exam: Normal Immobilizer type: Post-op shoe Performed by: PCT Post-Proc Neuro Vasc Exam: Normal Alignment checked and good: Yes Discharge - Discharge Clinical Impression: Finger fracture, right Qualifiers: Encounter type: initial encounter Finger: little finger Fracture type: closed Phalanx: proximal Fracture alignment: displaced Qualified Code(s): S62.616A - Displaced fracture of proximal phalanx of right little finger, initial encounter for closed fracture Toe fracture, left Qualifiers: Encounter type: initial encounter Toe: lesser toe Fracture type: closed Phalanx: proximal Fracture alignment: displaced Qualified Code(s): S92.512A - Displaced fracture of proximal phalanx of left lesser toe(s), initial encounter for closed fracture Condition: Stable Disposition: HOME, SELF-CARE Instructions: [place]co Taping (toes) ([facility]), Fractured Finger ([facility]), Post-Op Shoe ([facility]), Splint Precautions ([facility]), Fractured Toe ([facility]) Additional Instructions: Return immediately for any new or worsening symptoms Followup with your primary care provider, call tomorrow to make a followup appointment Follow-up with orthopedics, call Tuesday for an appointment Prescriptions: Hydrocodone/Acetaminophen [[place] 5-325 mg Tablet] 1 tab PO Q6 PRN #12 tablet PRN Reason: Referrals: [facility] ([facility]) [Provider Group] - 11/17/20
--- NOTE | 2020-11-14 15:44 | RADIOLOGY REPORT (SQ) ---
EXAM DESCRIPTION: TOE LEFT IMAGES COMPLETED DATE/TIME: 11/14/2020 3:16 pm REASON FOR STUDY: stubbed toe, L 2nd toe COMPARISON: None. NUMBER OF VIEWS: Three views. TECHNIQUE: AP, lateral, and oblique images acquired of the left second toe. LIMITATIONS: None. FINDINGS: MINERALIZATION: Normal. BONES: Minimally displaced oblique fracture of the proximal phalanx. No worrisome bone lesions. JOINTS: No effusions. SOFT TISSUES: No soft tissue swelling. No foreign body. OTHER: No other significant finding. IMPRESSION: MINIMALLY DISPLACED OBLIQUE FRACTURE OF THE PROXIMAL PHALANX OF THE LEFT 2ND TOE. COMMENT: SITE OF TRAUMA/COMPLAINT MARKED/STAMP COMPLETED: YES. TECHNICAL DOCUMENTATION: JOB ID: [id number] 2010 [employer]- All Rights Reserved Reading location - IP/workstation name: [email or web address]
--- NOTE | 2020-11-14 15:46 | RADIOLOGY REPORT (SQ) ---
EXAM DESCRIPTION: HAND RIGHT 3 VIEWS IMAGES COMPLETED DATE/TIME: 11/14/2020 3:16 pm REASON FOR STUDY: fall, r 5th MC pain COMPARISON: 10/31/2007. EXAM PARAMETERS: NUMBER OF VIEWS: Three views. TECHNIQUE: AP, lateral and oblique radiographic images acquired of the right hand. LIMITATIONS: None. FINDINGS: MINERALIZATION: Normal. BONES: Minimally displaced comminuted longitudinal fracture of the proximal phalanx of the 5th finger . No worrisome bone lesions. JOINTS: No effusions. SOFT TISSUES: No soft tissue swelling. No foreign body. OTHER: No other significant finding. IMPRESSION: MINIMALLY DISPLACED FRACTURE OF THE PROXIMAL PHALANX OF THE RIGHT 5TH FINGER. TECHNICAL DOCUMENTATION: JOB ID: [id number] 2010 [employer]- All Rights Reserved Reading location - IP/workstation name: [email or web address]
== END 2020-11-14 21:56 | disposition home or self-care (01) ==
LOC: ER 13:27
DX: S62.616A Displaced fracture of proximal phalanx of right little finger, initial encounter for closed fracture (principal); S92.512A Displaced fracture of proximal phalanx of left lesser toe(s), initial encounter for closed fracture; W22.09XA Striking against other stationary object, initial encounter; F17.200 Nicotine dependence, unspecified, uncomplicated; I10 Essential (primary) hypertension
CPT/HCPCS: 99284